=== PATIENT | female | born 1995 | race African-American/Black ===

== ENCOUNTER 2022-01-06 13:56 | Emergency (ER) | payer OTHER, SELFPAY ==
[2022-01-06] MEDS ORDERED: Ketorolac Tromethamine 30 MG/ML VIAL ONE (15:57)
[2022-01-06] MEDS ORDERED: Acetaminophen 500 MG TAB ONE (15:57)
== END 2022-01-06 16:33 | disposition home or self-care (01) ==
LOC: ERS 13:56
DX: S06.0X9A Concussion with loss of consciousness of unspecified duration, initial encounter (principal); I10 Essential (primary) hypertension; E05.90 Thyrotoxicosis, unspecified without thyrotoxic crisis or storm; V89.2XXA Person injured in unspecified motor-vehicle accident, traffic, initial encounter
CPT/HCPCS: 96372; 99284; J1885

== ENCOUNTER 2024-05-11 16:26 | Emergency (ER) | payer SELFPAY ==
[2024-05-11] MEDS ORDERED: Ibuprofen 200 MG TAB ONE (16:28)
[2024-05-11] MEDS ORDERED: Amoxicillin/Potassium Clav 875 MG TAB ONE (17:13)
== END 2024-05-11 17:21 | disposition home or self-care (01) ==
LOC: ERS 16:26
DX: H66.92 Otitis media, unspecified, left ear (principal); H73.892 Other specified disorders of tympanic membrane, left ear; I10 Essential (primary) hypertension
CPT/HCPCS: 99282